=== PATIENT | male | born 1950 | race Caucasian/White ===

== ENCOUNTER 2017-08-23 21:36 | Emergency (ER) | payer MEDICARE ==
[~2017-08-23] VITALS: Ht 193 cm; Wt 102.1 kg
--- NOTE | 2017-08-23 21:39 | ED.ADGEN ---
Past History Past Medical History: Cancer Adult General Chief Complaint Chief Complaint ".. I just had surgery today at [facility]... Dr. Young removed at basal cell cancer... I had this surgery before... because I got radiation as kid to treat my acne...They discharge me home today... but I was going to drive back tomorrow to [facility]... I did take some ibuprofen today.... After a target I read the package has had not take another possibility of bleeding... Well surgery area started bleeding.... I never had the surgeries bleed before... " HPI HPI Patient is a 66 year old male who presents with above hx and complaints of bleeding from surgery site this morning.. External Dressing removed, the antibiotic impregnated dressing which was sutured in place, was left in place. Patient appeared to have some minimal oozing at lower edge of internal sutured dressing. Patient denies any other anticoagulants. He recently did stop his aspirin pre-surgery. No other history coagulopathy. As noted patient was hypertensive at 182/103. Patient is not normally hypertensive. Review of Systems Review of Systems Constitutional: Denies fever or chills [] Eyes: Denies change in visual acuity, redness, or eye pain [] HENT: Denies nasal congestion or sore throat [] Respiratory: Denies cough or shortness of breath [] Cardiovascular: No additional information not addressed in HPI [] GI: Denies abdominal pain, nausea, vomiting, bloody stools or diarrhea [] : Denies dysuria or hematuria [] Musculoskeletal: Denies back pain or joint pain [] Integument: Denies rash or skin lesions []complaints of bleeding from prior surgery site- left cheek Neurologic: Denies headache, focal weakness or sensory changes [] Endocrine: Denies polyuria or polydipsia [] All other systems were reviewed and found to be within normal limits, except as documented in this note. Family History Family History Noncontributory Current Medications Current Medications See nursing for home medications Allergies Allergies Allergies Coded Allergies Type Severity Reaction Last Updated Verified No Known Drug Allergies 08/23/17 No No known drug allergies Physical Exam Physical Exam Constitutional: , mild distress, non-toxic appearance. [] HENT: Normocephalic, atraumatic, bilateral external ears normal, oropharynx moist, no oral exudates, nose normal. []Multiple surgery sites scars on face and ears. New site left cheek-oozing as per history of present illness. Eyes: PERRLA, EOMI, conjunctiva normal, no discharge. [] Neck: Normal range of motion, no tenderness, supple, no stridor. [] Cardiovascular:Heart rate regular rhythm, no murmur [] Lungs & Thorax: Bilateral breath sounds equal at apexes auscultation [] Abdomen: Bowel sounds normal, soft, no tenderness, no masses, no pulsatile masses. [] Skin: Warm, dry, no erythema, no rash. [] Back: No tenderness, no CVA tenderness. [] Extremities: No tenderness, no cyanosis, no clubbing, ROM intact, no edema. [] Neurologic: Alert and oriented X 3, normal motor function, normal sensory function, no focal deficits noted. [] Psychologic: Affect anxious,, judgement normal, mood normal. [] Current Patient Data Vital Signs Vital Signs Date Time Temp Pulse Resp B/P (MAP) Pulse Ox O2 Delivery O2 Flow Rate FiO2 08/23/17 22:13 90 18 141/83 (102) 98 Room Air 08/23/17 21:40 97.7 EKG EKG [] Radiology/Procedures Radiology/Procedures [] Course & Med Decision Making Course & Med Decision Making Pertinent Labs and Imaging studies reviewed. (See chart for details). Pressure dressing placed with Sherman bandage- to monitor blood loss. At 2150. Call placed to Dr. Young- advised current tx. should be adequate. Pt. to hold further ibuprofen or any NSAIDs. If any concern have pt. follow up in office in AM. No bleeding thru. dressing at time of discharge. Pt. to wear pressure dressing tonight. ( Bulk- with mild compression by Sherman warp) Sleep sitting up. May return for dressing change or any concerns. Ice packs may be helpful. [] Final Impression Final Impression 1. Bleeding from surgery site[] Dragon Disclaimer Dragon Disclaimer This electronic medical record was generated, in whole or in part, using a voice recognition dictation system. CARO GOYAL MD Aug 23, 2017 21:39
[2017-08-23 22:13] VITALS: BP 141/83
== END 2017-08-23 22:45 | disposition home or self-care (01) ==
LOC: ER 21:36
DX: L76.22 Postprocedural hemorrhage of skin and subcutaneous tissue following other procedure (principal); Z98.890 Other specified postprocedural states
CPT/HCPCS: 99282